=== PATIENT | female | born 1985 | race Caucasian/White ===

== ENCOUNTER 2020-03-27 10:05 | Outpatient (CLI) | payer OTHER, SELFPAY ==
--- NOTE | ~2020-03-27 | US_ITS ---
US axilla LT DATE: 03/27/2020 10:43 INDICATION: Left axillary lump for 4 months TECHNIQUE: Real-time and color flow imaging of the left axillary soft tissues COMPARISON: 03/27/2020 left complete breast ultrasound FINDINGS: There is an approximately 7.4 x 17 mm lymph node in left axillary soft tissues. No suspicio us mass or shadowing or suspicious vascularity of the left axilla or left breast is noted otherwise. IMPRESSION: BI-RADS category 2: Benign Reviewed, dictated and finalized at [facility]. Reviewed, dictated and finalized at location [facility]. IMPRESSION: BI-RADS category 2: Benign
--- NOTE | ~2020-03-27 | US_ITS ---
US breast LT complete DATE: 03/27/2020 10:43 INDICATION: Left axillary lump for 4 months TECHNIQUE: Real-time and color flow imaging of the left axillary soft tissues COMPARISON: None FINDINGS: There is an approximately 7.4 x 17 mm lymph node in the left axillary soft tissues. No suspicious mass or shadowing or suspicious vascularity is evident. IMPRESSION: BI-RADS Category 2: Benign Reviewed, dictated and finalized at [facility]. Reviewed, dictated and finalized at location [facility]. IMPRESSION: BI-RADS Category 2: Benign
--- NOTE | ~2020-03-27 | XR_ITS ---
EXAMINATION: XR chest 2V DATE: 03/27/2020 10:28 INDICATION: Upper arm pain TECHNIQUE: Frontal and lateral views of the chest are obtained COMPARISON: None available FINDINGS: The lungs are free of acute opacities. There is no pleural effusion or pneumothorax. The ca rdiomediastinal silhouette is normal. The visualized bones and soft tissues are unremarkable. IMPRESSION: 1. No acute cardiopulmonary abnormality. Reviewed, dictated and finalized at location [facility].
== END 2020-03-27 10:06 | disposition home or self-care (01) ==
LOC: ANHIMG 10:11
PROVIDERS: PCP Family Medicine; Visit Provider Family Medicine
DX: M79.629 Pain in unspecified upper arm (principal)
CPT/HCPCS: 71046; 76641; 76882

== ENCOUNTER → 2023-05-13 15:52 | Outpatient (CLI) | payer OTHER, SELFPAY ==
--- NOTE | ~2023-05-13 | XR_ITS ---
XR foot LT min 3V DATE: 05/13/2023 16:07 INDICATION: Left ankle and foot joint pain TECHNIQUE: 3 views COMPARISON: None FINDINGS: No fracture or dislocation, periosteal reaction or bone destruction, erosive change or othe r significant abnormality. IMPRESSION: Negative Reviewed, dictated and finalized at location [facility]. IMPRESSION: Negative
== END ==
PROVIDERS: PCP Family Medicine; Visit Provider Chiropractor
DX: M79.672 Pain in left foot (principal); M79.18 Myalgia, other site
CPT/HCPCS: 73630

== ENCOUNTER 2023-06-07 11:39 | Emergency (ER) | payer OTHER, SELFPAY ==
--- NOTE | 2023-06-07 11:46 | ED.URI ---
HPI - URI/Sore Throat General Chief Complaint: Upper Respiratory Infection Stated Complaint: Cough Time Seen by Provider: 06/07/23 11:47 Source: patient, RN notes reviewed and old records reviewed Mode of arrival: ambulatory Limitations: no limitations History of Present Illness HPI Narrative: 38-year-old female presents to the [facility] with complaints of a cough for 4 weeks. States 4 weeks ago she with sinus congestion, cough, runny nose. Denies ever having fevers. Has tried [id number] products with no relief. States that she just can not care rate of the cough Onset (ago): week(s) (4) Treatments prior to arrival: cold medicine Related Data Home Medications Medication Instructions Recorded Confirmed spironolactone 100 mg tablet 100 mg PO DAILY 08/12/21 06/07/23 cyanocobalamin (vitamin B-12) 1,000 mcg PO DAILY 05/08/22 06/07/23 1,000 mcg tablet Allergies Allergy/AdvReac Type Severity Reaction Status Date / Time adhesive Allergy Rash Verified 06/07/23 12:00 Review of Systems Review of Systems: All systems reviewed & are unremarkable except as noted in HPI and below Constitutional: Constitutional: Reports no additional constitutional complaints Eyes: Eyes: Reports no additional eye complaints ENT: Reports system reviewed and no additional complaints, except as documented Cardiovascular: Cardiovascular: Reports no additional cardiovascular complaints, Denies chest pain and Denies dyspnea Respiratory: Respiratory: Reports as per HPI, Denies chest congestion, Reports cough, Denies dyspnea and Denies dyspnea on exertion Gastrointestinal: Gastrointestinal: Reports no additional gastrointestinal complaints, Denies abdominal pain, Denies nausea and Denies vomiting Musculoskeletal: Musculoskeletal: Reports no additional musculoskeletal complaints Integumentary/Breasts: Skin/Breast: Reports system reviewed and no additional complaints, except as docu Neurologic: Reports system reviewed and no additional complaints, except as documented Psychiatric: Psychiatric: Reports no additional psychiatric complaints Allergic/Immunologic: Allergic/Immunologic: Reports no additional allergic/immunologic complaints PMFSH Past Medical History Medical History (Updated 06/07/23 @ 11:59 by Sue Kraft APRN) Abdominal pain Acne vulgaris Acute non-recurrent maxillary sinusitis Axillary pain BMI 25.0-25.9,adult BMI 27.0-27.9,adult Breast cancer screening by mammogram normal mammogram with dense breast 05/26/2023. Recheck annually COVID-19 (~02/2021) unvaccinated. Whole family had mild symptoms Depression Encounter for wellness examination in adult Overweight (BMI 25.0-29.9) Seasonal allergic rhinitis Strain of right biceps muscle Vitamin B12 deficiency anemia Vitamin B12 401 with hemoglobin 14.6 on 05/19/2022. Weight gain, abnormal Family History Family History Mother Patient's mother is in good health Family history of malignant neoplasm of breast in first degree relative Social History Social History Smoking status: Never smoker Alcohol intake: current Substance use: current Substance use type: marijuana Comments At the time of my signature, I reviewed and agree with the nursing past medical, surgical, social, and family history. There is no relevant family history pertinent to the patient complaint. Exam Const: General: cooperative, healthy appearing, comfortable, no acute distress, well developed, alert and well nourished Nutritional Appearance: well nourished Orientation/consciousness: patient oriented x3 Limitations: no limitations HENMT: Head: normal to inspection Ears: hearing grossly normal bilaterally, external ears normal, TM's normal bilaterally, EAC's normal, mastoids normal and no periauricular adenopathy Face/Nose/Sinus: Normal external nose present, Normal nare
[2023-06-07 11:47] VITALS: BP 125/89; PULSE 76; RESP 16; TEMP 36.3; O2SAT 100
== END 2023-06-07 12:04 | disposition home or self-care (01) ==
PROVIDERS: Emergency Provider Nurse Practitioner; PCP Family Medicine
DX: J40 Bronchitis, not specified as acute or chronic (principal); R09.82 Postnasal drip; D51.9 Vitamin B12 deficiency anemia, unspecified; Z86.16 Personal history of COVID-19; F12.90 Cannabis use, unspecified, uncomplicated
CPT/HCPCS: 99213; G0463